=== PATIENT | female | born 1965 | race Caucasian/White ===

== ENCOUNTER 2016-10-18 00:38 | Emergency (ER) | payer MEDICAID ==
[~2016-10-18] VITALS: Ht 172.7 cm; Wt 83.0 kg
[~2016-10-18 00:38] MED LIST: AMOX500C PO; ATEN25TA PO; ESTR42.5V VAGINAL; FEXO1TAB97 PO; MEDI220T PO; METHI10 PO; MULTTAB67 PO; TIMO0.5S30 EACH EYE; VAGI10TA VAGINAL
[2016-10-18 00:41] VITALS: BP 191/81; PULSE 84; RESP 16; TEMP 97.6; O2SAT 98
[2016-11-20] MEDS ORDERED: METO25TA3 PO (14:33)
[2016-11-20] MEDS ORDERED: CITA20TA4 PO (14:33)
[2016-11-20] MEDS ORDERED: CITA40TA4 PO (14:33)
== END 2016-10-18 02:20 | disposition left against medical advice (07) ==
LOC: NED 00:38
DX: R10.9 Unspecified abdominal pain (principal); Z53.21 Procedure and treatment not carried out due to patient leaving prior to being seen by health care provider
CPT/HCPCS: 99281